=== PATIENT | female | born 1940 | race African-American/Black ===

== ENCOUNTER 2017-01-09 13:27 | Inpatient (IN) | payer MEDICARE ==
[~2017-01-09] VITALS: Ht 165.1 cm; Wt 62.6 kg
[2017-01-09 14:07] LABS: INR 1.1; PROTHROMBIN TIME 11.1 sec
[2017-01-09 14:10] LABS: BASOPHILS % 0.4 % (0.0-2.0); CARBON DIOXIDE 31 mEq/L (21-32); CHLORIDE 106 mEq/L (98-107); EOSINOPHILS % 0.5 % (0.0-5.0); HEMATOCRIT. 41.8 % (36.0-48.0); HEMOGLOBIN. 13.8 g/dL (12.0-16.0); MEAN CORPUSCULAR HEMOGLOBIN 30.1 pg (28.0-32.0); MEAN CORPUSCULAR VOLUME 91.4 fL (81.0-99.0); MEAN PLATELET VOLUME 10.1 fl (7.4-10.4); MONOCYTES % 5.8 % (2.0-8.0); NEUTROPHILS % 69.3 % (40.0-76.0); PLATELET 140 x1000/uL (130-400); RED BLOOD CELL COUNT 4.58 mill/uL (4.2-5.4); RED CELL DISTRIBUTION WIDTH 13.9 % (11.6-14.6)
[2017-01-09 14:16] LABS: TROPONIN I < 0.02 ng/mL (0.00-0.04)
[2017-01-09 15:51] LABS: CLARITY URINE CLOUDY (CLEAR); COLOR URINE YELLOW (YELLOW); GLUCOSE URINE NEGATIVE (NEGATIVE); KETONES URINE 1+ (NEGATIVE); LEUKOCYTE ESTERASE URINE 1+ (NEGATIVE); NITRITE URINE NEGATIVE (NEGATIVE); OCCULT BLOOD URINE TRACE (NEGATIVE); PROTEIN URINE TRACE (NEGATIVE); SPECIFIC GRAVITY URINE 1.033 (1.005-1.030)
[2017-01-09] MEDS ORDERED: SODIUM CHLORIDE 0.9% 1,000 ML IV ONE (16:15)
[2017-01-09] MEDS ORDERED: CEFTRIAXONE 1 G PREMIX 50 ML IV ONE (16:15)
[2017-01-09 23:37] VITALS: BP 170/84
[2017-01-10] VITALS (7 sets, daily range): BP systolic 130–206; BP diastolic 69–98
[2017-01-10] MEDS ORDERED: ONDANSETRON HCL 4MG/2ML VIAL IV PRN (00:30)
[2017-01-10] MEDS: DEXT 5%/0.9% NACL 1,000 ML IV SCH ×2 (01:14→13:12)
[2017-01-10 05:54] LABS: BASOPHILS % 0.6 % (0.0-2.0); EOSINOPHILS % 2.4 % (0.0-5.0); HEMATOCRIT. 35.3 % (36.0-48.0); HEMOGLOBIN. 11.8 g/dL (12.0-16.0); LYMPHOCYTES % 38.8 % (20.0-50.0); MEAN CORPUSCULAR HEMOGLOBIN 30.1 pg (28.0-32.0); MEAN CORPUSCULAR VOLUME 90.2 fL (81.0-99.0); MEAN PLATELET VOLUME 10.1 fl (7.4-10.4); MONOCYTES % 7.6 % (2.0-8.0); NEUTROPHILS % 50.6 % (40.0-76.0); PLATELET 111 x1000/uL (130-400); RED BLOOD CELL COUNT 3.92 mill/uL (4.2-5.4); RED CELL DISTRIBUTION WIDTH 13.9 % (11.6-14.6)
[2017-01-10 06:49] LABS: CARBON DIOXIDE 25 mEq/L (21-32); CHLORIDE 111 mEq/L (98-107)
[2017-01-10] MEDS ORDERED: POTASSIUM CHLORIDE 20MEQ TABLET SR PO NR (08:30)
[2017-01-10] MEDS: OMEPRAZOLE 20MG CAPSULE EXTENDED RELEASE PO SCH (08:46)
[2017-01-10] MEDS: CLONIDINE 0.1MG TABLET PO PRN ×2 (08:47→16:47)
[2017-01-10 11:20] LABS: CLARITY URINE CLEAR (CLEAR); COLOR URINE YELLOW (YELLOW); GLUCOSE URINE NEGATIVE (NEGATIVE); KETONES URINE TRACE (NEGATIVE); LEUKOCYTE ESTERASE URINE TRACE (NEGATIVE); NITRITE URINE NEGATIVE (NEGATIVE); OCCULT BLOOD URINE NEGATIVE (NEGATIVE); PROTEIN URINE NEGATIVE (NEGATIVE); SPECIFIC GRAVITY URINE 1.018 (1.005-1.030)
[2017-01-10 11:44] LABS: T4 FREE 1.11 ng/dL (0.76-1.46)
[2017-01-10 12:11] LABS: VITAMIN B12 SERUM 1215 pg/mL (211-911)
[2017-01-10 12:28] LABS: AMMONIA < 10 uMol/L (<32)
[2017-01-10] MEDS ORDERED: LIP40 PO (12:36)
[2017-01-10] MEDS ORDERED: EZET10TA26 PO (12:36)
[2017-01-10] MEDS ORDERED: METO-298 PO (12:36)
[2017-01-10] MEDS ORDERED: MEMA10TA11 PO (12:36)
[2017-01-10] MEDS ORDERED: CLOP75TA33 PO (12:36)
[2017-01-10 12:39] LABS: FOLIC ACID (FOLATE) SERUM > 20.00 ng/mL (>5.38)
[2017-01-10] MEDS: CLOPIDOGREL 75MG TABLET PO SCH (13:12)
[2017-01-11] VITALS (7 sets, daily range): BP systolic 130–160; BP diastolic 82–117
[2017-01-11] MEDS: DEXT 5%/0.9% NACL 1,000 ML IV SCH ×2 (01:05→13:08)
[2017-01-11] MEDS: CLONIDINE 0.1MG TABLET PO PRN ×2 (05:20→11:34)
[2017-01-11 06:12] LABS: BASOPHILS % 0.6 % (0.0-2.0); EOSINOPHILS % 2.6 % (0.0-5.0); HEMATOCRIT. 37.7 % (36.0-48.0); HEMOGLOBIN. 12.5 g/dL (12.0-16.0); LYMPHOCYTES % 29.6 % (20.0-50.0); MEAN CORPUSCULAR HEMOGLOBIN 30.2 pg (28.0-32.0); MEAN PLATELET VOLUME 10.3 fl (7.4-10.4); MONOCYTES % 8.3 % (2.0-8.0); NEUTROPHILS % 58.9 % (40.0-76.0); PLATELET 110 x1000/uL (130-400); RED BLOOD CELL COUNT 4.15 mill/uL (4.2-5.4); RED CELL DISTRIBUTION WIDTH 13.4 % (11.6-14.6)
[2017-01-11 06:40] LABS: CHLORIDE 108 mEq/L (98-107)
[2017-01-11 07:05] LABS: CARBON DIOXIDE 25 mEq/L (21-32)
[2017-01-11] MEDS: CLOPIDOGREL 75MG TABLET PO SCH (08:32)
[2017-01-11] MEDS: OMEPRAZOLE 20MG CAPSULE EXTENDED RELEASE PO SCH (08:32)
[2017-01-12] VITALS: BP 139/85
[2017-01-12 04:00] VITALS: BP 179/82
[2017-01-12] MEDS: CLONIDINE 0.1MG TABLET PO PRN (06:04)
[2017-01-12] MEDS: OMEPRAZOLE 20MG CAPSULE EXTENDED RELEASE PO SCH (06:04)
[2017-01-12 07:10] LABS: BASOPHILS % 0.3 % (0.0-2.0); EOSINOPHILS % 2.1 % (0.0-5.0); HEMATOCRIT. 32.6 % (36.0-48.0); LYMPHOCYTES % 34.2 % (20.0-50.0); MEAN CORPUSCULAR VOLUME 89.4 fL (81.0-99.0); MEAN PLATELET VOLUME 10.5 fl (7.4-10.4); MONOCYTES % 8.1 % (2.0-8.0); NEUTROPHILS % 55.3 % (40.0-76.0); PLATELET 104 x1000/uL (130-400); RED BLOOD CELL COUNT 3.65 mill/uL (4.2-5.4); RED CELL DISTRIBUTION WIDTH 13.6 % (11.6-14.6)
[2017-01-12 07:27] LABS: CARBON DIOXIDE 24 mEq/L (21-32); CHLORIDE 110 mEq/L (98-107)
[2017-01-12 08:00] VITALS: BP 160/64
[2017-01-12] MEDS: CLOPIDOGREL 75MG TABLET PO SCH (08:07)
[2017-01-12] MEDS: DEXT 5%/0.9% NACL 1,000 ML IV SCH ×2 (08:08→15:46)
[2017-01-12 12:00] VITALS: BP 137/85
[2017-01-12 16:00] VITALS: BP 151/77
[2017-01-12 20:00] VITALS: BP 169/86
[2017-01-13] VITALS (7 sets, daily range): BP systolic 131–183; BP diastolic 72–120
[2017-01-13] MEDS: DEXT 5%/0.9% NACL 1,000 ML IV SCH (05:39)
[2017-01-13] MEDS: OMEPRAZOLE 20MG CAPSULE EXTENDED RELEASE PO SCH (05:40)
[2017-01-13] MEDS: CLONIDINE 0.1MG TABLET PO PRN ×2 (06:11→20:43)
[2017-01-13] MEDS: CLOPIDOGREL 75MG TABLET PO SCH (08:27)
[2017-01-13 08:31] LABS: BASOPHILS % 0.7 % (0.0-2.0); EOSINOPHILS % 2.2 % (0.0-5.0); HEMOGLOBIN. 11.4 g/dL (12.0-16.0); LYMPHOCYTES % 39.6 % (20.0-50.0); MEAN CORPUSCULAR HEMOGLOBIN 30.2 pg (28.0-32.0); MEAN CORPUSCULAR VOLUME 90.2 fL (81.0-99.0); MEAN PLATELET VOLUME 9.9 fl (7.4-10.4); MONOCYTES % 8.9 % (2.0-8.0); NEUTROPHILS % 48.6 % (40.0-76.0); PLATELET 109 x1000/uL (130-400); RED BLOOD CELL COUNT 3.77 mill/uL (4.2-5.4); RED CELL DISTRIBUTION WIDTH 13.3 % (11.6-14.6)
[2017-01-13 08:48] LABS: CARBON DIOXIDE 28 mEq/L (21-32); CHLORIDE 109 mEq/L (98-107)
[2017-01-13] MEDS ORDERED: POTASSIUM CHLORIDE 20MEQ TABLET SR PO SCH (10:45)
[2017-01-14 04:21] VITALS: BP 149/85
[2017-01-14 05:07] LABS: BASOPHILS % 0.5 % (0.0-2.0); EOSINOPHILS % 4.1 % (0.0-5.0); HEMATOCRIT. 33.7 % (36.0-48.0); HEMOGLOBIN. 11.3 g/dL (12.0-16.0); LYMPHOCYTES % 43.2 % (20.0-50.0); MEAN CORPUSCULAR HEMOGLOBIN 30.3 pg (28.0-32.0); MEAN CORPUSCULAR VOLUME 90.5 fL (81.0-99.0); MEAN PLATELET VOLUME 10.6 fl (7.4-10.4); MONOCYTES % 9.7 % (2.0-8.0); NEUTROPHILS % 42.5 % (40.0-76.0); PLATELET 108 x1000/uL (130-400); RED BLOOD CELL COUNT 3.73 mill/uL (4.2-5.4); RED CELL DISTRIBUTION WIDTH 13.6 % (11.6-14.6)
[2017-01-14 07:23] LABS: CARBON DIOXIDE 27 mEq/L (21-32); CHLORIDE 108 mEq/L (98-107); PHOSPHORUS 2.8 mg/dL (2.5-4.9)
[2017-01-14 08:00] VITALS: BP 165/95
[2017-01-14] MEDS: CLOPIDOGREL 75MG TABLET PO SCH (08:20)
[2017-01-14] MEDS: FAMOTIDINE 20MG TABLET PO SCH (08:20)
[2017-01-14 12:00] VITALS: BP 151/77
[2017-01-14] MEDS ORDERED: AMLODIPINE 5MG TABLET PO SCH (12:30)
[2017-01-14 16:00] VITALS: BP 151/81
[2017-01-14] MEDS: LOSARTAN POTASSIUM 25 MG TABLET PO SCH (18:12)
[2017-01-14 20:00] VITALS: BP 156/80
[2017-01-14] MEDS: AMLODIPINE 5MG TABLET PO SCH (21:19)
[2017-01-15] VITALS: BP 168/96
[2017-01-15 04:00] VITALS: BP 157/90
[2017-01-15 06:33] LABS: CARBON DIOXIDE 32 mEq/L (21-32); CHLORIDE 103 mEq/L (98-107)
[2017-01-15 06:41] LABS: BASOPHILS % 0.5 % (0.0-2.0); EOSINOPHILS % 3.9 % (0.0-5.0); HEMATOCRIT. 35.6 % (36.0-48.0); LYMPHOCYTES % 40.7 % (20.0-50.0); MEAN CORPUSCULAR HEMOGLOBIN 30.5 pg (28.0-32.0); MEAN CORPUSCULAR VOLUME 90.2 fL (81.0-99.0); MEAN PLATELET VOLUME 10.4 fl (7.4-10.4); NEUTROPHILS % 45.9 % (40.0-76.0); PLATELET 128 x1000/uL (130-400); RED BLOOD CELL COUNT 3.95 mill/uL (4.2-5.4); RED CELL DISTRIBUTION WIDTH 13.6 % (11.6-14.6)
[2017-01-15 08:00] VITALS: BP 168/104
[2017-01-15] MEDS: FAMOTIDINE 20MG TABLET PO SCH (08:28)
[2017-01-15] MEDS: LOSARTAN POTASSIUM 25 MG TABLET PO SCH (08:28)
[2017-01-15] MEDS: CLOPIDOGREL 75MG TABLET PO SCH (08:28)
[2017-01-15] MEDS: AMLODIPINE 5MG TABLET PO SCH (08:29)
[2017-01-15 12:00] VITALS: BP 169/93
[2017-01-15] MEDS ORDERED: AMLODIPINE 5MG TABLET PO NR (12:35)
[2017-01-15 13:36] VITALS: BP 145/76
[2017-01-15 16:00] VITALS: BP 128/74
[2017-01-15] MEDS ORDERED: LOSARTAN POTASSIUM 25 MG TABLET PO SCH (21:00)
== END 2017-01-15 17:10 | DRG 64 ==
LOC: ER 15:51 → 5WST 16:04
PROVIDERS: ADMIT Family Medicine Adult Medicine; ATTEND Family Medicine Adult Medicine
DX: I63.9 Cerebral infarction, unspecified (principal); G92 Toxic encephalopathy; N30.00 Acute cystitis without hematuria; D50.9 Iron deficiency anemia, unspecified; E78.00 Pure hypercholesterolemia, unspecified; E78.5 Hyperlipidemia, unspecified; E86.0 Dehydration; E55.9 Vitamin D deficiency, unspecified; F03.90 Unspecified dementia, unspecified severity, without behavioral disturbance, psychotic disturbance, mood disturbance, and anxiety; I10 Essential (primary) hypertension; I73.9 Peripheral vascular disease, unspecified; Z86.73 Personal history of transient ischemic attack (TIA), and cerebral infarction without residual deficits; Z79.899 Other long term (current) drug therapy
CPT/HCPCS: 36415; 70450; 70551; 71010; 80048; 80053; 81001; 82140; 82607; 82746; 83036; 83735; 84100; 84439; 84443; 84481; 84484; 85025; 85610; 87086; 92610; 93005; 93306; 93880; 93970; 96365; 96375; 97110; 97112; 97162; 97166; 97530; 99291; J0696; J7030; J7042

== ENCOUNTER → 2017-03-31 | Outpatient (CLI) | payer MEDICARE, BC ==
[~2017-03-31] MED LIST: CLOP75TA33 PO; EZET10TA26 PO; LIP40 PO
== END | disposition home or self-care (01) ==
LOC: RAD 10:23
PROVIDERS: ATTEND Family Medicine Adult Medicine
DX: R13.10 Dysphagia, unspecified (principal)
CPT/HCPCS: 74220

== ENCOUNTER 2017-04-29 17:10 | Inpatient (IN) | payer MEDICARE, BC ==
[~2017-04-29] VITALS: Ht 162.6 cm; Wt 33.1 kg
[~2017-04-29 17:10] MED LIST changes: +MEMA10TA2 PO; +METO-385 GT
[2017-04-29 18:49] VITALS: BP 80/51
[2017-04-29 20:00] VITALS: BP 120/55
[2017-04-29] MEDS ORDERED: CLONIDINE 0.1MG TABLET PO PRN (20:30)
[2017-04-29] MEDS ORDERED: ONDANSETRON HCL 4MG/2ML VIAL IV PRN (20:30)
[2017-04-29] MEDS ORDERED: IPRATROPIUM/ALBUTEROL 0.5-3(2.5)MG/3ML NEB INH PRN (20:30)
[2017-04-29] MEDS ORDERED: DOCUSATE SODIUM 100MG CAPSULE PO PRN (20:30)
[2017-04-29] MEDS: DEXT 5%/0.45% NACL 1000ML 1,000 ML IV SCH (21:27)
[2017-04-29 22:04] LABS: AMMONIA < 10 uMol/L (<32)
[2017-04-30] VITALS: BP 99/62
[2017-04-30 04:00] VITALS: BP 101/52
[2017-04-30 06:49] LABS: CLARITY URINE CLOUDY (CLEAR); COLOR URINE DARK YELLOW (YELLOW); GLUCOSE URINE NEGATIVE (NEGATIVE); KETONES URINE NEGATIVE (NEGATIVE); LEUKOCYTE ESTERASE URINE 3+ (NEGATIVE); NITRITE URINE NEGATIVE (NEGATIVE); OCCULT BLOOD URINE TRACE (NEGATIVE); PROTEIN URINE TRACE (NEGATIVE); SPECIFIC GRAVITY URINE 1.023 (1.005-1.030)
[2017-04-30 07:38] LABS: *AMPHETAMINES SCREEN URINE NEGATIVE (NEGATIVE); *BARBITURATES SCREEN URINE NEGATIVE (NEGATIVE); *BENZODIAZEPINES SCREEN URINE NEGATIVE (NEGATIVE); *COCAINE SCREEN URINE NEGATIVE (NEGATIVE); CANNABINOID URINE SCREEN NEGATIVE (NEGATIVE); METHADONE URINE SCREEN NEGATIVE (NEGATIVE); OPIATES URINE SCREEN NEGATIVE (NEGATIVE); PHENCYCLIDINE URINE SCREEN NEGATIVE (NEGATIVE)
[2017-04-30 07:42] VITALS: BP 111/47
[2017-04-30 07:43] LABS: BASOPHILS % 0.2 % (0.0-2.0); EOSINOPHILS % 0.1 % (0.0-5.0); HEMATOCRIT. 34.7 % (36.0-48.0); MEAN CORPUSCULAR HEMOGLOBIN 29.6 pg (28.0-32.0); MEAN CORPUSCULAR VOLUME 93.4 fL (81.0-99.0); MEAN PLATELET VOLUME 11.1 fl (7.4-10.4); MONOCYTES % 5.8 % (2.0-8.0); NEUTROPHILS % 83.9 % (40.0-76.0); PLATELET 96 x1000/uL (130-400); RED BLOOD CELL COUNT 3.72 mill/uL (4.2-5.4); RED CELL DISTRIBUTION WIDTH 14.7 % (11.6-14.6)
[2017-04-30] MEDS: MEMANTINE HCL 10MG TABLET PO SCH ×2 (09:00→09:52)
[2017-04-30] MEDS: METOPROLOL TARTRATE 25MG TABLET PO SCH ×2 (09:00→21:00)
[2017-04-30] MEDS ORDERED: PANTOPRAZOLE SODIUM 40 MG/VIAL IV SCH (09:00)
[2017-04-30] MEDS: ATORVASTATIN CALCIUM 40MG TABLET PO SCH ×2 (09:00→09:51)
[2017-04-30] MEDS: CLOPIDOGREL 75MG TABLET PO SCH ×2 (09:00→09:52)
[2017-04-30] MEDS ORDERED: MEDICATION NOT ON FORMULARY EA (Metoprolol Succinate 50 MG) PO SCH (09:00)
[2017-04-30] MEDS: DEXT 5%/0.45% NACL 1000ML 1,000 ML IV SCH (10:09)
[2017-04-30 12:00] VITALS: BP 131/62
[2017-04-30] MEDS ORDERED: LEVOFLOXACIN 500MG PREMIX 100 ML IV NR (15:00)
[2017-04-30] MEDS: DEXTROSE 5% WATER 1,000 ML IV SCH (15:03)
[2017-04-30 16:02] VITALS: BP 125/93
[2017-04-30] MEDS ORDERED: ENOXAPARIN 30MG/0.3ML SYR SUBCUT NR (18:00)
[2017-04-30 20:00] VITALS: BP 108/61
[2017-04-30] MEDS: PANTOPRAZOLE SODIUM 40 MG/VIAL IV SCH (20:19)
[2017-05-01] VITALS: BP 101/62
[2017-05-01] MEDS: DEXTROSE 5% WATER 1,000 ML IV SCH ×2 (01:23→17:24)
[2017-05-01 04:00] VITALS: BP 99/62
[2017-05-01 06:47] LABS: INR 1.4; PARTIAL THROMBOPLASTIN TIME 29.6 sec (23.4-31.0); PROTHROMBIN TIME 14.5 sec (9.4-11.6)
[2017-05-01 07:42] LABS: BASOPHILS % 0.1 % (0.0-2.0); HEMATOCRIT. 33.2 % (36.0-48.0); HEMOGLOBIN. 10.9 g/dL (12.0-16.0); LYMPHOCYTES % 13.4 % (20.0-50.0); MEAN CORPUSCULAR HEMOGLOBIN 29.7 pg (28.0-32.0); MEAN CORPUSCULAR VOLUME 90.5 fL (81.0-99.0); MEAN PLATELET VOLUME 11.3 fl (7.4-10.4); MONOCYTES % 5.5 % (2.0-8.0); PLATELET 96 x1000/uL (130-400); RED BLOOD CELL COUNT 3.67 mill/uL (4.2-5.4)
[2017-05-01 08:00] VITALS: BP 108/64
[2017-05-01] MEDS: ATORVASTATIN CALCIUM 40MG TABLET PO SCH (08:34)
[2017-05-01] MEDS: METOPROLOL TARTRATE 25MG TABLET PO SCH (08:34)
[2017-05-01] MEDS: CLOPIDOGREL 75MG TABLET PO SCH (08:35)
[2017-05-01] MEDS: PANTOPRAZOLE SODIUM 40 MG/VIAL IV SCH ×2 (08:35→21:21)
[2017-05-01] MEDS: MEMANTINE HCL 10MG TABLET PO SCH (08:35)
[2017-05-01] MEDS ORDERED: KCL 20MEQ/100ML PREMIX 100 ML IV NR (11:30)
[2017-05-01 12:00] VITALS: BP 103/51
[2017-05-01 20:00] VITALS: BP 99/53
[2017-05-02] VITALS: BP 103/58
[2017-05-02 04:00] VITALS: BP 117/52
[2017-05-02 07:27] LABS: BASOPHILS % 0.2 % (0.0-2.0); EOSINOPHILS % 2.2 % (0.0-5.0); HEMATOCRIT. 30.3 % (36.0-48.0); HEMOGLOBIN. 9.9 g/dL (12.0-16.0); LYMPHOCYTES % 22.8 % (20.0-50.0); MEAN CORPUSCULAR HEMOGLOBIN 29.4 pg (28.0-32.0); MEAN CORPUSCULAR VOLUME 89.8 fL (81.0-99.0); MEAN PLATELET VOLUME 11.1 fl (7.4-10.4); MONOCYTES % 7.9 % (2.0-8.0); NEUTROPHILS % 66.9 % (40.0-76.0); PLATELET 82 x1000/uL (130-400); RED BLOOD CELL COUNT 3.37 mill/uL (4.2-5.4); RED CELL DISTRIBUTION WIDTH 14.6 % (11.6-14.6)
[2017-05-02 08:00] VITALS: BP 98/47
[2017-05-02] MEDS: CLOPIDOGREL 75MG TABLET PO SCH (08:18)
[2017-05-02] MEDS: ATORVASTATIN CALCIUM 40MG TABLET PO SCH (08:18)
[2017-05-02] MEDS: MEMANTINE HCL 10MG TABLET PO SCH (08:18)
[2017-05-02] MEDS: METOPROLOL TARTRATE 25MG TABLET PO SCH ×2 (08:19→20:40)
[2017-05-02] MEDS: ENOXAPARIN 30MG/0.3ML SYR SUBCUT SCH (08:21)
[2017-05-02] MEDS: PANTOPRAZOLE SODIUM 40 MG/VIAL IV SCH ×2 (08:54→20:40)
[2017-05-02] MEDS ORDERED: POTASSIUM CHLORIDE INJ 40 MEQ in DEXT 5% WATER 250 ML IV SCH (11:30)
[2017-05-02 12:00] VITALS: BP 125/54
[2017-05-02 15:55] VITALS: BP 141/58
[2017-05-02] MEDS: LEVOFLOXACIN 250MG PREMIX 50 ML IV SCH (18:21)
[2017-05-02 20:00] VITALS: BP 122/72
[2017-05-03] VITALS: BP 116/73
[2017-05-03 04:00] VITALS: BP 101/52
[2017-05-03] MEDS: DEXTROSE 5% WATER 1,000 ML IV SCH (05:35)
[2017-05-03 07:09] LABS: BASOPHILS % 0.1 % (0.0-2.0); HEMATOCRIT. 33.1 % (36.0-48.0); HEMOGLOBIN. 10.7 g/dL (12.0-16.0); LYMPHOCYTES % 18.5 % (20.0-50.0); MEAN CORPUSCULAR VOLUME 90.2 fL (81.0-99.0); MEAN PLATELET VOLUME 11.8 fl (7.4-10.4); MONOCYTES % 7.6 % (2.0-8.0); NEUTROPHILS % 72.8 % (40.0-76.0); PLATELET 93 x1000/uL (130-400); RED BLOOD CELL COUNT 3.67 mill/uL (4.2-5.4); RED CELL DISTRIBUTION WIDTH 14.1 % (11.6-14.6)
[2017-05-03 07:50] VITALS: BP 116/54
[2017-05-03] MEDS: CLOPIDOGREL 75MG TABLET PO SCH (09:00)
[2017-05-03] MEDS: MEMANTINE HCL 10MG TABLET PO SCH (09:00)
[2017-05-03] MEDS: METOPROLOL TARTRATE 25MG TABLET PO SCH ×2 (09:00→20:39)
[2017-05-03] MEDS: ATORVASTATIN CALCIUM 40MG TABLET PO SCH (09:00)
[2017-05-03] MEDS: PANTOPRAZOLE SODIUM 40 MG/VIAL IV SCH ×2 (09:15→20:34)
[2017-05-03] MEDS: ENOXAPARIN 30MG/0.3ML SYR SUBCUT SCH (09:15)
[2017-05-03] MEDS ORDERED: DEXT 5%/0.45% NACL 500ML 500 ML IV ONE (10:45)
[2017-05-03] MEDS: DEXT 5%/0.45% NACL 1000ML 1,000 ML IV SCH (10:59)
[2017-05-03 11:56] VITALS: BP 103/72
[2017-05-03 16:11] VITALS: BP 117/54
[2017-05-03 20:00] VITALS: BP 115/57
[2017-05-04] VITALS: BP 118/70
[2017-05-04 04:00] VITALS: BP 127/62
[2017-05-04] MEDS: DEXT 5%/0.45% NACL 1000ML 1,000 ML IV SCH (06:08)
[2017-05-04 06:49] LABS: BASOPHILS % 0.2 % (0.0-2.0); EOSINOPHILS % 1.2 % (0.0-5.0); HEMATOCRIT. 27.9 % (36.0-48.0); HEMOGLOBIN. 9.3 g/dL (12.0-16.0); LYMPHOCYTES % 21.6 % (20.0-50.0); MEAN CORPUSCULAR HEMOGLOBIN 29.8 pg (28.0-32.0); MEAN CORPUSCULAR VOLUME 89.3 fL (81.0-99.0); MONOCYTES % 9.2 % (2.0-8.0); NEUTROPHILS % 67.8 % (40.0-76.0); PLATELET 95 x1000/uL (130-400); RED BLOOD CELL COUNT 3.13 mill/uL (4.2-5.4); RED CELL DISTRIBUTION WIDTH 14.1 % (11.6-14.6)
[2017-05-04 07:46] VITALS: BP 125/58
[2017-05-04] MEDS ORDERED: MEMANTINE HCL 5MG TABLET PO SCH (07:59)
[2017-05-04] MEDS: METOPROLOL TARTRATE 25MG TABLET PO SCH ×2 (09:00→21:00)
[2017-05-04] MEDS: CLOPIDOGREL 75MG TABLET PO SCH (09:00)
[2017-05-04] MEDS: ENOXAPARIN 30MG/0.3ML SYR SUBCUT SCH (09:00)
[2017-05-04] MEDS: MEMANTINE HCL 5MG TABLET PO SCH (09:00)
[2017-05-04] MEDS: ATORVASTATIN CALCIUM 40MG TABLET PO SCH (09:00)
[2017-05-04] MEDS: PANTOPRAZOLE SODIUM 40 MG/VIAL IV SCH ×2 (09:17→21:50)
[2017-05-04 12:00] VITALS: BP 127/58
[2017-05-04] MEDS: LEVOFLOXACIN 250MG PREMIX 50 ML IV SCH (15:18)
[2017-05-04 16:00] VITALS: BP 155/95
[2017-05-05] VITALS: BP 137/71
[2017-05-05 04:00] VITALS: BP 103/58
[2017-05-05 07:14] LABS: BASOPHILS % 0.1 % (0.0-2.0); EOSINOPHILS % 0.7 % (0.0-5.0); HEMATOCRIT. 27.7 % (36.0-48.0); HEMOGLOBIN. 9.3 g/dL (12.0-16.0); LYMPHOCYTES % 13.4 % (20.0-50.0); MEAN CORPUSCULAR HEMOGLOBIN 29.6 pg (28.0-32.0); MEAN CORPUSCULAR VOLUME 88.4 fL (81.0-99.0); MEAN PLATELET VOLUME 11.6 fl (7.4-10.4); MONOCYTES % 8.4 % (2.0-8.0); NEUTROPHILS % 77.4 % (40.0-76.0); PLATELET 100 x1000/uL (130-400); RED BLOOD CELL COUNT 3.13 mill/uL (4.2-5.4); RED CELL DISTRIBUTION WIDTH 13.8 % (11.6-14.6)
[2017-05-05 08:00] VITALS: BP 110/66
[2017-05-05] MEDS: ENOXAPARIN 30MG/0.3ML SYR SUBCUT SCH (09:00)
[2017-05-05] MEDS: MEMANTINE HCL 5MG TABLET PO SCH (09:00)
[2017-05-05] MEDS: METOPROLOL TARTRATE 25MG TABLET PO SCH ×2 (09:00→21:00)
[2017-05-05] MEDS: CLOPIDOGREL 75MG TABLET PO SCH (09:00)
[2017-05-05] MEDS: ATORVASTATIN CALCIUM 40MG TABLET PO SCH (09:00)
[2017-05-05] MEDS: PANTOPRAZOLE SODIUM 40 MG/VIAL IV SCH ×2 (11:09→20:25)
[2017-05-05] MEDS: DEXT 5%/0.45% NACL 1000ML 1,000 ML IV SCH (11:09)
[2017-05-05 12:00] VITALS: BP 137/65
[2017-05-05] MEDS ORDERED: MIDAZOLAM HCL 5 MG/5 ML VIAL ONE (15:29)
[2017-05-05] MEDS ORDERED: FENTANYL CITRATE/PF 50MCG/ML 2ML VIAL ONE (15:29)
[2017-05-05] MEDS ORDERED: SIMETHICONE 40 MG/0.6 ML 30ML ONE ×2 (15:29→17:08)
[2017-05-05] MEDS ORDERED: FENTANYL CITRATE/PF 50MCG/ML 2ML VIAL IM PRN (15:29)
[2017-05-05] MEDS ORDERED: MIDAZOLAM HCL 5 MG/5 ML VIAL IV PRN (15:29)
[2017-05-05 16:00] VITALS: BP 160/100
[2017-05-05] MEDS ORDERED: METOCLOPRAMIDE HCL 10MG/2ML VIAL IV NR (16:00)
[2017-05-05] MEDS ORDERED: SODIUM CHLORIDE 0.9% 10ML VIAL ONE (17:08)
[2017-05-05 20:00] VITALS: BP 99/51
[2017-05-05] MEDS ORDERED: METOCLOPRAMIDE HCL 10MG/2ML VIAL IV SCH (20:00)
[2017-05-06] VITALS: BP 110/60
[2017-05-06 04:00] VITALS: BP 118/57
[2017-05-06 08:00] VITALS: BP_SYST 107; BP_SYST 178; BP_DIAS 50; BP_DIAS 85
[2017-05-06] MEDS: CLOPIDOGREL 75MG TABLET PO SCH (09:33)
[2017-05-06] MEDS: PANTOPRAZOLE SODIUM 40 MG/VIAL IV SCH ×2 (09:33→21:57)
[2017-05-06] MEDS: ATORVASTATIN CALCIUM 40MG TABLET PO SCH (09:33)
[2017-05-06] MEDS: MEMANTINE HCL 5MG TABLET PO SCH (09:33)
[2017-05-06] MEDS: METOPROLOL TARTRATE 25MG TABLET PO SCH ×2 (09:33→21:00)
[2017-05-06] MEDS: ENOXAPARIN 30MG/0.3ML SYR SUBCUT SCH (09:34)
[2017-05-06] MEDS: DEXT 5%/0.45% NACL 1000ML 1,000 ML IV SCH ×2 (09:34→19:00)
[2017-05-06 12:00] VITALS: BP 105/50
[2017-05-06] MEDS: LEVOFLOXACIN 250MG PREMIX 50 ML IV SCH (15:38)
[2017-05-06 16:00] VITALS: BP 123/62
[2017-05-06] MEDS: ACETAMINOPHEN 325MG TABLET PO PRN (17:20)
[2017-05-06 20:00] VITALS: BP 93/51
[2017-05-07] VITALS: BP 111/57
[2017-05-07 04:00] VITALS: BP 112/61
[2017-05-07 08:31] VITALS: BP 112/55
[2017-05-07] MEDS: MEMANTINE HCL 5MG TABLET PO SCH (08:37)
[2017-05-07] MEDS: PANTOPRAZOLE SODIUM 40 MG/VIAL IV SCH (08:37)
[2017-05-07] MEDS: METOPROLOL TARTRATE 25MG TABLET PO SCH (08:37)
[2017-05-07] MEDS: ATORVASTATIN CALCIUM 40MG TABLET PO SCH (08:37)
[2017-05-07] MEDS: DEXT 5%/0.45% NACL 1000ML 1,000 ML IV SCH (08:38)
[2017-05-07] MEDS: ENOXAPARIN 30MG/0.3ML SYR SUBCUT SCH (08:38)
[2017-05-07] MEDS: CLOPIDOGREL 75MG TABLET PO SCH (08:40)
[2017-05-07] MEDS ORDERED: LACTULOSE 20G/30ML UDC PO PRN (09:00)
[2017-05-07] MEDS ORDERED: DOCUSATE SODIUM SUGAR FREE 100MG/10ML UDC GT SCH (11:00)
[2017-05-07] MEDS: ACETAMINOPHEN 325MG TABLET PO PRN (11:15)
[2017-05-07] MEDS ORDERED: MAGNESIUM CITRATE 300ML SOLUTION GT SCH (12:00)
[2017-05-07 12:16] VITALS: BP 90/44
[2017-05-07 13:08] VITALS: BP 90/44
[2017-05-07 13:43] VITALS: BP 126/63
[2017-05-07] MEDS ORDERED: APIXABAN 2.5 MG TABLET PO SCH (17:00)
== END 2017-05-07 15:00 | DRG 682 ==
LOC: 8WST 17:10
PROVIDERS: ADMIT Family Medicine Adult Medicine; ATTEND Family Medicine Adult Medicine
PROC: 0DH63UZ Insertion of Feeding Device into Stomach, Percutaneous Approach (ICD-10-PCS; principal; 2017-05-05 15:00)
DX: N17.9 Acute kidney failure, unspecified (principal); E43 Unspecified severe protein-calorie malnutrition; E87.0 Hyperosmolality and hypernatremia; R13.10 Dysphagia, unspecified; I82.412 Acute embolism and thrombosis of left femoral vein; E87.1 Hypo-osmolality and hyponatremia; Z93.1 Gastrostomy status; N39.0 Urinary tract infection, site not specified; I82.432 Acute embolism and thrombosis of left popliteal vein; R62.7 Adult failure to thrive; E87.6 Hypokalemia; I73.9 Peripheral vascular disease, unspecified; F03.90 Unspecified dementia, unspecified severity, without behavioral disturbance, psychotic disturbance, mood disturbance, and anxiety; I10 Essential (primary) hypertension; D64.9 Anemia, unspecified; E78.00 Pure hypercholesterolemia, unspecified; E78.5 Hyperlipidemia, unspecified; K59.00 Constipation, unspecified; Z86.73 Personal history of transient ischemic attack (TIA), and cerebral infarction without residual deficits; Z79.899 Other long term (current) drug therapy
CPT/HCPCS: 36415; 71010; 74000; 76770; 80048; 80076; 80305; 81001; 82140; 83735; 84443; 85025; 85610; 85730; 87077; 87086; 87186; 92610; 93005; 93970; 97162; A4216; C1893; C9113; J1650; J1956; J2250; J2765; J3010; J3480; J3490; J7042; J7060; J7070; A4315

== ENCOUNTER 2017-05-14 13:07 | Inpatient (IN) | payer MEDICARE, BC ==
[2017-05-13 21:05] VITALS: BP 124/61
[~2017-05-14] VITALS: Ht 162.6 cm; Wt 51.3 kg
[2017-05-14] MEDS ORDERED: APIX2.5T PO (13:16)
[2017-05-14] MEDS ORDERED: LEVO250T2 PO (13:16)
[2017-05-14] MEDS ORDERED: SODIUM CHLORIDE 0.9% 1,000 ML IV ONE (14:03)
[2017-05-14] MEDS ORDERED: ACETAMINOPHEN 650MG SUPP PR STA (14:03)
[2017-05-14] MEDS ORDERED: SODIUM CHLORIDE 0.9% 1000ML BAG (SEPSIS BOLUS) IV ONE (14:15)
[2017-05-14] MEDS ORDERED: PIPERACILLIN/TAZ 3.375G PREMIX 50 ML IV ONE (14:15)
[2017-05-14] MEDS ORDERED: VANCOMYCIN 1 G PREMIX 200 ML IV ONE (14:15)
[2017-05-14 14:43] LABS: BASOPHILS % 0.2 % (0.0-2.0); EOSINOPHILS % 0.5 % (0.0-5.0); HEMATOCRIT. 23.5 % (36.0-48.0); HEMOGLOBIN. 7.8 g/dL (12.0-16.0); LYMPHOCYTES % 9.7 % (20.0-50.0); MEAN CORPUSCULAR HEMOGLOBIN 29.2 pg (28.0-32.0); MEAN CORPUSCULAR VOLUME 87.7 fL (81.0-99.0); MEAN PLATELET VOLUME 8.1 fl (7.4-10.4); MONOCYTES % 4.7 % (2.0-8.0); NEUTROPHILS % 84.9 % (40.0-76.0); PLATELET 276 x1000/uL (130-400); RED BLOOD CELL COUNT 2.68 mill/uL (4.2-5.4); RED CELL DISTRIBUTION WIDTH 15.6 % (11.6-14.6)
[2017-05-14 14:47] LABS: INR 1.1; PROTHROMBIN TIME 11.1 sec (9.4-11.6)
[2017-05-14 15:03] LABS: CARBON DIOXIDE 31 mEq/L (21-32); CHLORIDE 101 mEq/L (98-107)
[2017-05-14 15:10] LABS: TROPONIN I 0.73 ng/mL (0.00-0.04)
[2017-05-14 16:24] LABS: CLARITY URINE CLOUDY (CLEAR); COLOR URINE YELLOW (YELLOW); GLUCOSE URINE NEGATIVE (NEGATIVE); KETONES URINE NEGATIVE (NEGATIVE); LEUKOCYTE ESTERASE URINE NEGATIVE (NEGATIVE); NITRITE URINE NEGATIVE (NEGATIVE); OCCULT BLOOD URINE NEGATIVE (NEGATIVE); PROTEIN URINE TRACE (NEGATIVE); SPECIFIC GRAVITY URINE 1.019 (1.005-1.030)
[2017-05-14 22:10] VITALS: BP 124/61
[2017-05-14] MEDS ORDERED: PROT40 GT (23:39)
[2017-05-14] MEDS ORDERED: ACET-2178 GT (23:45)
[2017-05-15] VITALS (9 sets, daily range): BP systolic 97–136; BP diastolic 47–83
[2017-05-15] MEDS ORDERED: ACETAMINOPHEN 325MG TABLET GT PRN
[2017-05-15] MEDS ORDERED: NON FORMULARY PATIENT HOME MED EA XX SCH
[2017-05-15] MEDS: DEXT 5%/0.45% NACL 1000ML 1,000 ML IV SCH ×2 (00:18→16:48)
[2017-05-15 00:23] LABS: HEMATOCRIT 24.4 % (36.0-48.0); HEMOGLOBIN 8.1 g/dL (12.0-16.0)
[2017-05-15 06:04] LABS: BASOPHILS % 0.3 % (0.0-2.0); EOSINOPHILS % 0.4 % (0.0-5.0); LYMPHOCYTES % 10.5 % (20.0-50.0); MEAN CORPUSCULAR HEMOGLOBIN 29.2 pg (28.0-32.0); MEAN PLATELET VOLUME 8.3 fl (7.4-10.4); MONOCYTES % 4.7 % (2.0-8.0); NEUTROPHILS % 84.1 % (40.0-76.0); PLATELET 273 x1000/uL (130-400); RED BLOOD CELL COUNT 2.39 mill/uL (4.2-5.4); RED CELL DISTRIBUTION WIDTH 15.9 % (11.6-14.6)
[2017-05-15 06:44] LABS: CARBON DIOXIDE 27 mEq/L (21-32); CHLORIDE 105 mEq/L (98-107)
[2017-05-15 07:35] LABS: TROPONIN I 0.53 ng/mL (0.00-0.04)
[2017-05-15] MEDS: PANTOPRAZOLE 40MG DR TABLET PO SCH (08:37)
[2017-05-15] MEDS: METOPROLOL TARTRATE 25MG TABLET GT SCH ×2 (08:43→21:18)
[2017-05-15 12:02] LABS: HEMATOCRIT 21.2 % (36.0-48.0); HEMOGLOBIN 7.2 g/dL (12.0-16.0)
[2017-05-15] MEDS ORDERED: POTASSIUM PHOS,M-BASIC-D-BASIC 10 MMOL in DEXT 5% WATER 246.6667 ML IV NR (13:00)
[2017-05-15] MEDS ORDERED: MAGNESIUM 1 G PREMIX 100 ML IV NR (13:00)
[2017-05-15] MEDS ORDERED: REN800 PO (14:06)
[2017-05-15 20:50] LABS: HEMATOCRIT 20.4 % (36.0-48.0); HEMOGLOBIN 6.9 g/dL (12.0-16.0)
[2017-05-15] MEDS: MEMANTINE HCL 5MG TABLET GT SCH (21:17)
[2017-05-15] MEDS: ATORVASTATIN CALCIUM 40MG TABLET GT SCH (21:17)
[2017-05-16] VITALS (14 sets, daily range): BP systolic 109–149; BP diastolic 47–87
[2017-05-16] MEDS: DEXT 5%/0.45% NACL 1000ML 1,000 ML IV SCH ×2 (02:21→15:13)
[2017-05-16 05:58] LABS: BASOPHILS % 0.2 % (0.0-2.0); EOSINOPHILS % 0.9 % (0.0-5.0); HEMATOCRIT. 27.1 % (36.0-48.0); LYMPHOCYTES % 10.5 % (20.0-50.0); MEAN CORPUSCULAR HEMOGLOBIN 29.1 pg (28.0-32.0); MEAN CORPUSCULAR VOLUME 87.6 fL (81.0-99.0); MEAN PLATELET VOLUME 8.1 fl (7.4-10.4); MONOCYTES % 6.3 % (2.0-8.0); NEUTROPHILS % 82.1 % (40.0-76.0); PLATELET 241 x1000/uL (130-400); RED BLOOD CELL COUNT 3.09 mill/uL (4.2-5.4); RED CELL DISTRIBUTION WIDTH 15.5 % (11.6-14.6)
[2017-05-16 07:50] LABS: CHLORIDE 105 mEq/L (98-107)
[2017-05-16 07:58] LABS: CARBON DIOXIDE 27 mEq/L (21-32); PHOSPHORUS 2.4 mg/dL (2.5-4.9)
[2017-05-16] MEDS: PANTOPRAZOLE 40MG DR TABLET PO SCH (08:41)
[2017-05-16] MEDS: METOPROLOL TARTRATE 25MG TABLET GT SCH ×2 (08:45→20:47)
[2017-05-16] MEDS ORDERED: POTASSIUM PHOS,M-BASIC-D-BASIC 10 MMOL in DEXT 5% WATER 246.6667 ML IV SCH (11:00)
[2017-05-16 12:28] LABS: HEMATOCRIT 28.9 % (36.0-48.0); HEMOGLOBIN 9.7 g/dL (12.0-16.0)
[2017-05-16] MEDS ORDERED: CEFAZOLIN 1000MG PREMIX 50 ML IV SCH (12:45)
[2017-05-16] MEDS ORDERED: LIDOCAINE HCL 1% 20ML VIAL (Pyxis) INJ ONE (12:58)
[2017-05-16] MEDS ORDERED: CEFAZOLIN 1000MG PREMIX 50 ML IV ONE (12:58)
[2017-05-16] MEDS ORDERED: SODIUM BICARBONATE 4% (2.4MEQ) 5ML VIAL IV ONE (12:59)
[2017-05-16] MEDS ORDERED: IOHEXOL-300 100 ML BOTTLE ONE (13:06)
[2017-05-16] MEDS ORDERED: IOHEXOL-300 50 ML BOTTLE IV ONE (13:06)
[2017-05-16 20:20] LABS: HEMATOCRIT 26.3 % (36.0-48.0); HEMOGLOBIN 8.9 g/dL (12.0-16.0)
[2017-05-16] MEDS: MEMANTINE HCL 5MG TABLET GT SCH (20:47)
[2017-05-16] MEDS: ATORVASTATIN CALCIUM 40MG TABLET GT SCH (20:47)
[2017-05-17] VITALS: BP 141/63
[2017-05-17 04:00] VITALS: BP 111/64
[2017-05-17] MEDS: DEXT 5%/0.45% NACL 1000ML 1,000 ML IV SCH ×2 (04:50→17:38)
[2017-05-17 08:00] VITALS: BP 109/54
[2017-05-17 08:44] LABS: BASOPHILS % 0.4 % (0.0-2.0); EOSINOPHILS % 0.7 % (0.0-5.0); HEMATOCRIT. 26.6 % (36.0-48.0); HEMOGLOBIN. 8.9 g/dL (12.0-16.0); LYMPHOCYTES % 10.8 % (20.0-50.0); MEAN CORPUSCULAR HEMOGLOBIN 29.1 pg (28.0-32.0); MEAN CORPUSCULAR VOLUME 86.8 fL (81.0-99.0); MEAN PLATELET VOLUME 8.1 fl (7.4-10.4); MONOCYTES % 5.6 % (2.0-8.0); NEUTROPHILS % 82.5 % (40.0-76.0); PLATELET 264 x1000/uL (130-400); RED BLOOD CELL COUNT 3.07 mill/uL (4.2-5.4); RED CELL DISTRIBUTION WIDTH 16.4 % (11.6-14.6)
[2017-05-17] MEDS: METOPROLOL TARTRATE 25MG TABLET GT SCH (09:00)
[2017-05-17 09:01] LABS: CARBON DIOXIDE 31 mEq/L (21-32); CHLORIDE 101 mEq/L (98-107); PHOSPHORUS 2.4 mg/dL (2.5-4.9)
[2017-05-17] MEDS: ZINC SULFATE 220 MG ( 50 ) CAPSULE PO SCH (09:17)
[2017-05-17] MEDS: PANTOPRAZOLE 40MG DR TABLET PO SCH (09:17)
[2017-05-17] MEDS: MULTIVITAMINS,THER W-MINERALS TABLET PO SCH (09:17)
[2017-05-17] MEDS: ASCORBIC ACID 250 MG TABLET PO SCH ×2 (09:17→18:10)
[2017-05-17 12:00] VITALS: BP 131/68
[2017-05-17] MEDS ORDERED: POTASSIUM CHLORIDE 20MEQ/PACKET PO NR (13:15)
[2017-05-17 16:00] VITALS: BP 145/72
[2017-05-17] MEDS ORDERED: DILTIAZEM HCL 5MG/ML 5ML VIAL IV SCH (19:15)
[2017-05-17 20:00] VITALS: BP 133/74
[2017-05-17] MEDS: MEMANTINE HCL 5MG TABLET GT SCH (20:35)
[2017-05-17] MEDS: ATORVASTATIN CALCIUM 20MG TABLET PO SCH (20:35)
[2017-05-17] MEDS: LISINOPRIL 10MG TABLET PO SCH (20:36)
[2017-05-17] MEDS: CARVEDILOL 6.25 MG TABLET PO SCH (20:36)
[2017-05-18] VITALS: BP 145/65
[2017-05-18] MEDS: DEXT 5%/0.45% NACL 1000ML 1,000 ML IV SCH ×2 (02:55→22:11)
[2017-05-18 04:00] VITALS: BP 122/66
[2017-05-18 08:00] VITALS: BP 139/88
[2017-05-18] MEDS: MULTIVITAMINS,THER W-MINERALS TABLET PO SCH (09:07)
[2017-05-18] MEDS: ZINC SULFATE 220 MG ( 50 ) CAPSULE PO SCH (09:07)
[2017-05-18] MEDS: FAMOTIDINE 20MG TABLET PO SCH (09:08)
[2017-05-18] MEDS: CARVEDILOL 6.25 MG TABLET PO SCH ×2 (09:08→22:12)
[2017-05-18] MEDS: LISINOPRIL 10MG TABLET PO SCH ×2 (09:08→22:12)
[2017-05-18] MEDS: ASCORBIC ACID 250 MG TABLET PO SCH ×2 (09:08→17:51)
[2017-05-18 12:00] VITALS: BP 124/68
[2017-05-18] MEDS ORDERED: METOCLOPRAMIDE HCL 10MG/2ML VIAL IV NR (12:45)
[2017-05-18 16:00] VITALS: BP 119/54
[2017-05-18] MEDS: METOCLOPRAMIDE HCL 5MG TABLET PO SCH ×2 (17:51→23:40)
[2017-05-18 20:00] VITALS: BP 131/61
[2017-05-18] MEDS: ATORVASTATIN CALCIUM 20MG TABLET PO SCH (22:12)
[2017-05-18] MEDS: MEMANTINE HCL 5MG TABLET GT SCH (22:12)
[2017-05-19] VITALS: BP 120/53
[2017-05-19 04:00] VITALS: BP 101/44
[2017-05-19] MEDS: METOCLOPRAMIDE HCL 5MG TABLET PO SCH ×2 (05:04→12:26)
[2017-05-19 05:59] LABS: BASOPHILS % 0.5 % (0.0-2.0); HEMATOCRIT. 24.3 % (36.0-48.0); HEMOGLOBIN. 8.1 g/dL (12.0-16.0); LYMPHOCYTES % 12.8 % (20.0-50.0); MEAN CORPUSCULAR HEMOGLOBIN 29.4 pg (28.0-32.0); MEAN CORPUSCULAR VOLUME 88.1 fL (81.0-99.0); MEAN PLATELET VOLUME 8.2 fl (7.4-10.4); MONOCYTES % 8.5 % (2.0-8.0); NEUTROPHILS % 77.2 % (40.0-76.0); PLATELET 252 x1000/uL (130-400); RED BLOOD CELL COUNT 2.76 mill/uL (4.2-5.4); RED CELL DISTRIBUTION WIDTH 16.4 % (11.6-14.6)
[2017-05-19 07:24] LABS: CARBON DIOXIDE 26 mEq/L (21-32); CHLORIDE 105 mEq/L (98-107)
[2017-05-19 08:00] VITALS: BP 123/54
[2017-05-19] MEDS: FAMOTIDINE 20MG TABLET PO SCH (09:09)
[2017-05-19] MEDS: ZINC SULFATE 220 MG ( 50 ) CAPSULE PO SCH (09:09)
[2017-05-19] MEDS: MULTIVITAMINS,THER W-MINERALS TABLET PO SCH (09:09)
[2017-05-19] MEDS: ASCORBIC ACID 250 MG TABLET PO SCH ×2 (09:09→17:03)
[2017-05-19] MEDS: LISINOPRIL 10MG TABLET PO SCH ×2 (09:10→20:58)
[2017-05-19] MEDS: CARVEDILOL 6.25 MG TABLET PO SCH ×2 (09:10→20:59)
[2017-05-19] MEDS: DEXT 5%/0.45% NACL 1000ML 1,000 ML IV SCH ×2 (09:11→23:27)
[2017-05-19 12:00] VITALS: BP 126/57
[2017-05-19] MEDS: CLOPIDOGREL 75MG TABLET PO SCH (14:47)
[2017-05-19 16:00] VITALS: BP 119/50
[2017-05-19] MEDS ORDERED: METOCLOPRAMIDE HCL 10MG/2ML VIAL IV NR (16:15)
[2017-05-19] MEDS ORDERED: METOCLOPRAMIDE HCL 5MG TABLET PO SCH (18:00)
[2017-05-19 20:00] VITALS: BP 116/51
[2017-05-19] MEDS: ATORVASTATIN CALCIUM 20MG TABLET PO SCH (20:58)
[2017-05-19] MEDS: METOCLOPRAMIDE HCL 5MG TABLET PO PRN (20:58)
[2017-05-19] MEDS: MEMANTINE HCL 5MG TABLET GT SCH (20:59)
[2017-05-20] VITALS (7 sets, daily range): BP systolic 100–167; BP diastolic 47–87
[2017-05-20] MEDS: METOCLOPRAMIDE HCL 5MG TABLET PO PRN ×4 (01:08→17:18)
[2017-05-20 07:52] LABS: CARBON DIOXIDE 31 mEq/L (21-32); CHLORIDE 106 mEq/L (98-107)
[2017-05-20 08:21] LABS: BASOPHILS % 0.5 % (0.0-2.0); EOSINOPHILS % 0.9 % (0.0-5.0); HEMATOCRIT. 24.8 % (36.0-48.0); HEMOGLOBIN. 8.2 g/dL (12.0-16.0); LYMPHOCYTES % 12.4 % (20.0-50.0); MEAN CORPUSCULAR HEMOGLOBIN 29.1 pg (28.0-32.0); MEAN CORPUSCULAR VOLUME 88.4 fL (81.0-99.0); MEAN PLATELET VOLUME 8.4 fl (7.4-10.4); MONOCYTES % 7.5 % (2.0-8.0); NEUTROPHILS % 78.7 % (40.0-76.0); PLATELET 240 x1000/uL (130-400); RED CELL DISTRIBUTION WIDTH 17.2 % (11.6-14.6)
[2017-05-20] MEDS: LISINOPRIL 10MG TABLET PO SCH (09:00)
[2017-05-20] MEDS: CARVEDILOL 6.25 MG TABLET PO SCH (09:00)
[2017-05-20] MEDS: ZINC SULFATE 220 MG ( 50 ) CAPSULE PO SCH (09:14)
[2017-05-20] MEDS: CLOPIDOGREL 75MG TABLET PO SCH (09:14)
[2017-05-20] MEDS: MULTIVITAMINS,THER W-MINERALS TABLET PO SCH (09:14)
[2017-05-20] MEDS: FAMOTIDINE 20MG TABLET PO SCH (09:14)
[2017-05-20] MEDS: ASCORBIC ACID 250 MG TABLET PO SCH ×2 (09:16→17:18)
[2017-05-20] MEDS: DEXT 5%/0.45% NACL 1000ML 1,000 ML IV SCH (13:55)
== END 2017-05-20 21:35 | DRG 252 ==
LOC: ER 13:12 → 7WST 16:03 → EDBEDREQSVC 16:06 → EDBEDREQ 16:06 → ENRESERV 20:12
PROVIDERS: ADMIT Family Medicine Adult Medicine; ATTEND Family Medicine Adult Medicine
PROC: 30233N1 Transfusion of Nonautologous Red Blood Cells into Peripheral Vein, Percutaneous Approach (ICD-10-PCS; principal; 2017-05-16)
PROC: 06H03DZ Insertion of Intraluminal Device into Inferior Vena Cava, Percutaneous Approach (ICD-10-PCS; 2017-05-16)
PROC: B5191ZA Fluoroscopy of Inferior Vena Cava using Low Osmolar Contrast, Guidance (ICD-10-PCS; 2017-05-16)
DX: I82.402 Acute embolism and thrombosis of unspecified deep veins of left lower extremity (principal); E43 Unspecified severe protein-calorie malnutrition; N17.9 Acute kidney failure, unspecified; E87.0 Hyperosmolality and hypernatremia; E87.2 Acidosis; N39.0 Urinary tract infection, site not specified; I42.9 Cardiomyopathy, unspecified; Z68.1 Body mass index [BMI] 19.9 or less, adult; K94.23 Gastrostomy malfunction; D64.9 Anemia, unspecified; E78.00 Pure hypercholesterolemia, unspecified; E78.5 Hyperlipidemia, unspecified; E87.6 Hypokalemia; F03.90 Unspecified dementia, unspecified severity, without behavioral disturbance, psychotic disturbance, mood disturbance, and anxiety; I10 Essential (primary) hypertension; I34.0 Nonrheumatic mitral (valve) insufficiency; I73.9 Peripheral vascular disease, unspecified; Z79.02 Long term (current) use of antithrombotics/antiplatelets; Z86.73 Personal history of transient ischemic attack (TIA), and cerebral infarction without residual deficits; R62.7 Adult failure to thrive; Z79.899 Other long term (current) drug therapy; Y92.238 Other place in hospital as the place of occurrence of the external cause
CPT/HCPCS: 36415; 37191; 51702; 71010; 74176; 80048; 80053; 81001; 82270; 83605; 83735; 83880; 84100; 84484; 85014; 85018; 85025; 85610; 86850; 86900; 86920; 87040; 87086; 93005; 93306; 96365; 96366; 96368; 99285; A6261; C1725; C1769; C1880; J0690; J1644; J2543; J2765; J3370; J3475; J3490; J7030; J7050; J7060; J8597; P9016; Q9967; A4315